=== PATIENT | female | born 1970 | race Caucasian/White ===

== ENCOUNTER 2021-12-16 18:00 | Emergency (ER) | payer BC, OTHER, SELFPAY ==
[2021-12-16 18:36] VITALS: BP 122/90; PULSE 85; RESP 18; TEMP 36.7; O2SAT 97; BMI 34.7
--- NOTE | 2021-12-16 19:39 | CRLHL7_ITS ---
For Patients: As a result of the Century Cures Act, medical imaging exams and procedure reports are released immediately into your electronic medical record. You may view this report before your referring provider. If you have questions, please contact your health care provider. Indication: Headache, right-sided numbness in the arm and face Technique: Volumetric multidetector CT images of the head were obtained without the administration of low osmolar intravenous contrast. Comparison: None available Findings: There is no intra-axial or extra-axial fluid collection. There is no mass effect or midline shift. The ventricles and sulci are normal in size and position for age. The brain parenchyma is grossly preserved in attenuation and casey-white differentiation. The orbits and their contents are grossly within normal limits. The bony calvarium is grossly intact. The paranasal sinuses are clear. The mastoid air cells are well aerated. Impression: No acute intracranial abnormality. Please note that all CT scans at this facility use dose modulation, iterative reconstruction, and/or weight-based dosing when appropriate to reduce radiation dose to as low as reasonably achievable. Dictated by Ronny Owens MD @ 12/16/2021 8:41:11 PM (Electronically Signed)
--- NOTE | 2021-12-16 19:54 | ED.HA ---
HPI - Headache General Date Seen: 12/16/21 Chief Complaint: Headache/Migraine Stated Complaint: Headache Numbness Time Seen by Provider: 12/16/21 18:50 Source: patient and RN notes reviewed Mode of arrival: ambulatory Limitations: no limitations History of Present Illness HPI Narrative: Patient is a 51-year-old female with history of migraine headaches coming in with a headache associated with right facial, right arm and some sense of right leg numbness. She has had a headache for the last couple days, did not take any Tylenol or ibuprofen for today but had is the last couple days. She has had migraine headaches before, but they have been different. Sometime she has had some nausea or vomiting. Sometimes she has felt like her speech was off. She has never had any numbness like she is feeling now. She feels it is more sense of having ?fallen asleep?. When asked her if it was like it feels when you coming out of dental anesthesia she states that is how it feels. She can still feel me touch but it feels different than the other side. It primarily the right side of her face and her right arm, maybe some symptoms in the leg. She has been able to walk, see fine without any visual changes, no incoordination of her arms or legs, no speech issues. She denies any recent illness, no recent COVID, no fevers or chills, no trauma or head injury. She is not on any hormonal treatment. MD elicited complaint: headache and other (Right-sided numbness face and arm, some in leg) Onset (ago): hour(s) Onset description: other (Awoke with a) Related Data Home Medications Medication Instructions Recorded Confirmed No Known Home Medications 12/16/21 12/16/21 Previous Rx's Medication Instructions Recorded prednisone 20 mg tablet 20 mg PO BID #10 tab 12/16/21 Allergies Allergy/AdvReac Type Severity Reaction Status Date / Time omeprazole Allergy Verified 12/16/21 18:34 Review of Systems Status of ROS: Reports: 10 or more systems reviewed and unremarkable except as noted in History and below Exam Const: Vital Signs, click to edit/add: Vital Signs - 24 hr 12/16/21 18:36 Temperature 98.1 F Pulse Rate [Right Pulse Oximeter] 85 Respiratory Rate 18 Blood Pressure [Ri ght Upper Arm] 122/90 H Pulse Oximetry 97 Documenting provider has reviewed patient's vital signs: yes Common normals: no apparent distress, oriented x3, no limitations, healthy appearing, alert and well nourished General appearance: cooperative, comfortable and well kempt Nutritional appearance: overweight Orientation/consciousness: Yes awake, Yes oriented to person, Yes oriented to place and Yes oriented to time HENMT: Common normals: normocephalic, head/scalp atraumatic, hearing grossly normal bilaterally, external ears normal, EAC's normal, TM's normal bilaterally, external nose normal, nasal mucous membranes and turbinates normal, moist oral mucous membranes, oropharynx normal and dentition normal Head and scalp: normocephalic and atraumatic Face and sinus: normal facial exam Nose: external nose normal and nasal mucous membranes and turbinates normal External ear: external ears normal External auditory canal: EAC's normal Tympanic membrane: TM's normal bilaterally Mouth: oral and palatal mucosa normal, lip normal and tongue normal Eye: Common normals: PERRL, EOMs intact bilaterally, conjunctivae normal, no scleral icterus and normal visual fishman by confrontation Conjunctiva: conjunctiva(e) normal Pupil: PERRL Neck & C-Spine: Common normals: full ROM, no lymphadenopathy, supple, no meningeal signs, no JVD and thyroid normal Thyroid: thyroid normal Resp: Common normals: normal respiratory effort, no retractions, no use of accessory muscles and clear to auscultation bilaterally Auscultation: clear to auscultation bilaterally Cardio: Common normals: no JVD, regular rate, regular rhythm, S1 normal heart sound, S2 normal heart sound, no gallops, no clicks and no murmurs Rate: regular rate Rhythm: regular rhythm Heart sounds: S1 normal and S2 normal GI: Common normals: Normal to inspection, nondistended, normoactive bowel sounds present, soft to palpation and non-tender Palpation: soft Extremity: Common normals: normal to inspection and no calf tenderness Neuro: [place] Coma Scale: document GCS findings [place] coma scale eye opening: Spontaneous (4) [place] coma scale verbal response: Orientated (5) [place] coma scale motor response: Obey commands (6) [place] coma scale total score: 15 Common normals: oriented x3, CN's II-XII intact bilaterally, moves all extremities, no focal motor deficits and gait normal Sensorium/orientation: awake, alert, oriented to person, oriented to place and oriented to time Meningeal signs: no meningeal signs Coordination/balance: pihnck-gx-wpxp test normal and hsrb-iy-[id number] test normal Speech: speech normal Gait (neuro): normal gait Motor exam: strength 5/5 throughout, no pronator drift, no tremor noted, no asterixis, no fasciculations and muscle tone normal throughout Deep tendon reflexes: Rt Biceps (C5, C6): 0, Lt Biceps (C5, C6): 0, Rt Patellar (L4): 0 and Lt Patellar (L4): 0 Coordination: [id number]-gu-[id number] test normal and kjah-cf-jzbt test normal Psych: Appearance: well kempt Course Course Hospital Course: Did talk to patient about the inability to have an MRI done here through the weekend. Unfortunately the provider from the urgent care did not talk to us, meaning 1 of the physicians, before sending her here. By the time she even got here it was after hours for MRI. Did discuss option of doing head CT and treating her headache to see if the numbness would go away. Alternatively had talked about having her go to an institution where there was MRI capacity. I cannot guarantee that this would be done. It would mean that she would be signing out against medical advice. She was interested in having an MRI done and I did contact [facility] where she was interested in going. They unfortunately the had many people in the waiting room and dropped to a 3 hour wait. The physician would be happy to see her but she would not necessarily move in front of any of the other patients. I reviewed this with her and she would like to proceed with the plan of doing a head CT just to rule out any major intercranial pathology. She understands that this will not necessarily show minor lesions in the parenchyma, may not rule out small tumors. She understands limitations and ultimately even if she does recover from the headache and the numbness tonight and is an atypical migraine, would have her consider having an MRI down the road with these symptoms. She has no motor symptomatology with this, it is only sensory, thus not likely to be a CVA, symptoms have been present all day without waxing or waning and thus also makes this is not something that we would intervene on. Will do baseline lab work to ensure there is nothing changed there. Am going to initiate an IV with normal saline 1 L, 25 mg IV Benadryl, IV Reglan 10 mg, 15 mg IV Toradol. Reevaluation(s) Reevaluation #1: Patient states the headache and the numbness are still the same. She really has not received any benefit from the right gland, Toradol, Benadryl. I have reviewed with her that her head CT noncontrast showing no acute abnormality. Her white count is normal. Other labs are still pending. We will consider other medicines and see if we can fabien her headache and see if the numbness sensation goes away with that. This would essentially give us the diagnosis of an atypical migraine. Time: 20:52 Reevaluation #2: Patient actually is feeling a bit better as far as the numbness, it is still there somewhat but definitely improved from her report. She states the headache is still there. We are going to proceed with IV ketamine 20 mg. She will be on pulse oximetry for monitoring during this. Return to see if we can make the headache go away and her symptomatology completely resolved. This would largely confirm a migraine with atypical features. Time: 21:32 Reevaluation #3: Reviewed with patient her normal laboratory results. She unfortunately really did not have much benefit as far as headache from the ketamine. She states it is not completely atypical for her to have a migraine for days but the numbness was different. It is not gone away. We have decided for discharge with ongoing outpatient observation and follow up with primary care next week. She understands if she has progressive neurologic symptoms, any motor involvement, visual changes, speech issues, any worsening that she does need to proceed to an ER where there is MRI capacity. I have discussed with her that she certainly can go to [facility] but I cannot promise an MRI will be done, she will have to be re-evaluated. She is declining to go elsewhere at this time and will go home to try to sleep tonight and see how she feels in the morning. Time: 22:27 Vital Signs Vital signs: Initial Vital Signs Temperature 98.1 F 12/16/21 18:36 Temperature Source Temporal Artery Scan 12/16/21 18:36 Pulse Rate 85 12/16/21 18:36 Respiratory Rate 18 12/16/21 18:36 Blood Pressure 122/90 H 12/16/21 18:36 Blood Pressure Mean 100 12/16/21 18:36 Blood Pressure Position Sitting 12/16/21 18:36 Pulse Oximetry 97 12/16/21 18:36 Oxygen Delivery Method 12/16/21 18:36 Vital Signs Temperature 98.1 F 12/16/21 18:36 Pulse Rate 85 12/16/21 18:36 Respiratory Rate 18 12/16/21 18:36 Blood Pressure 122/90 H 12/16/21 18:36 Pulse Oximetry 97 12/16/21 18:36 Temperature 98.1 F 12/16/21 18:36 Pulse Rate 85 12/16/21 18:36 Respiratory Rate 18 12/16/21 18:36 Blood Pressure 122/90 H 12/16/21 18:36 Pulse Oximetry 97 12/16/21 18:36 MDM - Headache Lab Data Attestation: I reviewed the patient's lab results. Labs: Lab Results 12/16/21 12/16/21 12/16/21 Range/Units 20:00 20:00 20:00 WBC 10.14 (4.50-11.00) K/uL RBC 4.72 (4.00-5.20) m/uL Hgb 13.4 (12.0-16.0) gm/dL Hct 40.8 (33.0-51.0) % MCV 86 (80-100) fL MCH 28 (26-34) pg MCHC 33 (32-36) gm/dL RDW Coeff of Dian 13.8 (11.5-15.5) % Plt Count 331 (140-440) K/uL Neut % (Auto) 50.2 (42.0-72.0) % Lymph % (Auto) 39.5 (20-44) % [place] % (Auto) 5.0 (0.0-11.0) % Eos % (Auto) 4.2 (0.0-7.0) % Baso % (Auto) 0.5 (0.0-3.0) % Neut # (Auto) 5.08 (1.7-7.0) K/uL Lymph # (Auto) 4.01 H (0.90-2.90) K/uL [place] # (Auto) 0.50 (0.00-0.90) K/UL Eos # (Auto) 0.43 (0.00-0.50) K/uL Baso # (Auto) 0.05 (0.00-0.30) K/uL Abs Immat Gran (auto) 0.06 (0.00-0.30) K/uL ESR 15 (2-20) mm/hr Sodium 137 (135-149) mmol/L Potassium 3.9 (3.6-5.1) mmol/L Chloride 108 (96-114) mmol/L Carbon Dioxide 22 (20-32) mmol/L BUN 9 (5-24) mg/dL Creatinine 0.7 (0.5-1.5) mg/dL Estimated Creat Clear 76.89 Estimated GFR 106 ml/min Glucose 94 (60-115) mg/dL Calcium 9.4 (8.4-10.6) mg/dL Total Bilirubin 0.3 (0.1-1.5) mg/dL AST 25 (12-35) U/L ALT 24 (4-35) U/L Alkaline Phosphatase 86 (40-150) U/L C-Reactive Protein 0.7 (0.5-1.0) mg/dL Total Protein 7.9 (6.0-8.3) g/dL Albumin 4.7 (3.3-5.0) g/dL Imaging Data CT scan - head: Radiologist's impression: Patient: LOU MASCORRO Facility:?[facility] Patient ID:?[id number] Site Patient ID:?[id number]. Site :?[id number] Study:?CT Head W/O-12/16/2021 7:54:49 PM Ordering Physician:Azalia Sylvester Final Report: Indication: Headache, right-sided numbness in the arm and face Technique: Volumetric multidetector CT images of the head were obtained without the administration of low osmolar intravenous contrast. Comparison: None available Findings: There is no intra-axial or extra-axial fluid collection. There is no mass effect or midline shift. The ventricles and sulci are normal in size and position for age. The brain parenchyma is grossly preserved in attenuation and casey-white differentiation. The orbits and their contents are grossly within normal limits. The bony calvarium is grossly intact. The paranasal sinuses are clear. The mastoid air cells are well aerated. Impression: No acute intracranial abnormality. Please note that all CT scans at this facility use dose modulation, iterative reconstruction, and/or weight-based dosing when appropriate to reduce radiation dose to as low as reasonably achievable. Dictated by Ronny Owens MD @ 12/16/2021 8:41:11 PM (Electronic Signature) Critical Care Time Critical Care Time Critical Care Time: No Discharge Plan Discharge Clinical Impression: Headache, Right facial numbness, Numbness and tingling of right arm and leg Condition: Stable Instructions: Acute Headache (ED), Paresthesia (ED) Additional Instructions: If you have ongoing headache tomorrow, can try the prednisone for migraine status. Do need to follow up with her primary care provider next week to discuss getting an MRI for what seems is very likely a migraine with atypical features. Can continue with Tylenol and ibuprofen per bottle directions at home for symptoms. Drink adequate fluids to stay hydrated as this can help diminish headaches. If you have any changes in urine neurologic status such is develop weakness or incoordination or visual changes or speech issues, etc., do need more emergent evaluation in the ER that does have MRI capacity through the weekend. Activity Level: Activity as Tolerated Prescriptions: New prednisone 20 mg tablet 20 mg PO BID Qty: 10 0RF No Action No Known Home Medications 0RF Follow Up/Referrals: John Tomlinson MD [Primary Care Provider] - Stand Alone Forms: Lien Enforcement Info Instructions
[2021-12-16] MEDS: diphenhydrAMINE 50 MG/ML inj 25 MG IVP (20:07)
[2021-12-16] MEDS: 0.9 % SODIUM CHLORIDE 1000 ml 1,000 ML 500 ML IV (20:07)
[2021-12-16] MEDS: METOCLOPRAMIDE HCL 10 MG in 0.9 % SODIUM CHLORIDE 100 ml 100 ML 306 MG IVPB (20:17)
[2021-12-16 20:24] LABS: Basophils Absolute Auto 0.05 K/uL (0.00-0.30); Basophils Percent Auto 0.5 % (0.0-3.0); Eosinophils Absolute Auto 0.43 K/uL (0.00-0.50); Eosinophils Percent Auto 4.2 % (0.0-7.0); Hematocrit 40.8 % (33.0-51.0); Hemoglobin* 13.4 gm/dL (12.0-16.0); Immature Granulocytes Abs Auto 0.06 K/uL (0.00-0.30); Lymphocytes Absolute Auto 4.01 K/uL (0.90-2.90); Lymphocytes Percent Auto 39.5 % (20-44); Mean Corpuscular HGB Conc 33 gm/dL (32-36); Mean Corpuscular Hemoglobin 28 pg (26-34); Mean Corpuscular Volume 86 fL (80-100); Neutrophils Absolute Auto 5.08 K/uL (1.7-7.0); Neutrophils Percent Auto 50.2 % (42.0-72.0); Platelet Count* 331 K/uL (140-440); RDW Coefficient of Variation % 13.8 % (11.5-15.5); Red Blood Count 4.72 m/uL (4.00-5.20); White Blood Count* 10.14 K/uL (4.50-11.00)
[2021-12-16 20:28] LABS: Slide Review Reflex No
[2021-12-16 20:39] LABS: Chloride* 108 mmol/L (96-114)
[2021-12-16 20:40] LABS: Albumin* 4.7 g/dL (3.3-5.0); Potassium* 3.9 mmol/L (3.6-5.1); Sodium* 137 mmol/L (135-149)
[2021-12-16 20:43] LABS: Alanine Aminotransferase* 24 U/L (4-35); Alkaline Phosphatase* 86 U/L (40-150); Aspartate Amino Transferase* 25 U/L (12-35); Bilirubin Total* 0.3 mg/dL (0.1-1.5); Blood Urea Nitrogen* 9 mg/dL (5-24); Carbon Dioxide* 22 mmol/L (20-32); Creatinine* 0.7 mg/dL (0.5-1.5); Est. Creatinine Clearance* 76.89; Estimated Glomerular Filt Rate 106 ml/min; Total Protein* 7.9 g/dL (6.0-8.3)
[2021-12-16 20:44] LABS: Calcium* 9.4 mg/dL (8.4-10.6); Glucose* 94 mg/dL (60-115)
[2021-12-16 20:46] LABS: C Reactive Protein* 0.7 mg/dL (0.5-1.0)
[2021-12-16 21:24] LABS: Erythrocyte SedimentationRate* 15 mm/hr (2-20)
[2021-12-16] MEDS: KETAMINE HCL 20 MG in 0.9 % SODIUM CHLORIDE 100 ml 100 ML 300.6 MG IVPB (21:34)
[2021-12-16] MEDS: ONDANSETRON 2 MG/ML inj 4 MG IVP (23:29)
[2021-12-16 23:39] VITALS: BP 133/55; PULSE 72; RESP 16; TEMP 36.7; O2SAT 98
== END 2021-12-16 23:38 | disposition home or self-care (01) ==
PROVIDERS: Emergency Provider Family Medicine; PCP Family Medicine
DX: R20.0 Anesthesia of skin (principal)
CPT/HCPCS: 36415; 70450; 80053; 85025; 85651; 86140; 96365; 96366; 96375; 99284; 99285; J1200; J2405; J2765; J3490; J7030